=== PATIENT | female | born 1970 ===

== ENCOUNTER → 2019-02-14 22:22 | Outpatient (REF) | payer BC, SELFPAY ==
[2019-02-15 00:17] LABS: Add Manual Diff / Slide Review NO; Basophils Absolute Auto 0 /uL (0-100); Basophils Percent Auto 0.6 % (0-2); Eosinophils Absolute Auto 600 /uL (0-450); Hematocrit 39.7 % (36-46); Hemoglobin 12.9 g/dL (12.0-16.0); Lymphocytes Absolute Auto 1900 /uL (1100-4500); Lymphocytes Percent Auto 25.6 % (25-40); Mean Corpuscular HGB Conc 32.6 % (30-36); Mean Corpuscular Hemoglobin 31.6 PG (26-34); Monocytes Absolute Auto 600 /uL (0-900); Monocytes Percent Auto 8.8 % (3-14); Neutrophils Absolute Auto 4100 /uL (1500-7000); Platelet Count 250 X10^3/uL (150-400); Red Blood Cell Count 4.09 X10^6/uL (4.0-5.2); Red Cell Distribution Width 12.2 % (11.6-14.8); White Blood Cell Count 7.2 X10^3/uL (4.5-11.0)
[2019-02-15 00:36] LABS: Vitamin D 25 Hydroxy (D3) 116 ng/mL (30.0-100.0)
[2019-02-15 00:49] LABS: Erythrocyte Sedimentation Rate 7 MM/HR (0-20)
[2019-02-15 01:28] LABS: Lactate Dehydrogenase 367 U/L (313-618)
[2019-02-15 01:32] LABS: High Sensitivity CRP - Cardiac 0.8 mg/L (1.0-3.0)
[2019-02-15 01:50] LABS: Free T3, Triiodothyronine Free 6.08 pg/mL (2.77-5.27); Free T4, Direct Thyroxine 1.08 ng/dL (0.78-2.19); Triiodothryronine T3 Uptake 39.2 % (23.5-40.5)
[2019-02-15 02:04] LABS: Thyroid Stimulating Hormone 0.28 uIU/mL (0.47-4.68)
[2019-02-19 13:42] LABS: Anti Thyroglobulin Antibody 1 IU/mL (< 2); Thyroid Peroxidase Antibodies 5 IU/mL (< 9)
[2019-02-19 15:51] LABS: Homocysteine 7.7 umol/L (< 10.4)
[2019-02-20 09:16] LABS: Triiodothyronine T3 Total 165 ng/dL (76-181)
[2019-02-21 16:56] LABS: Methylmalonic Acid 171 nmol/L (87-318)
== END ==
LOC: LAB 22:22
PROVIDERS: Visit Provider Acupuncturist
DX: Z00.00 Encounter for general adult medical examination without abnormal findings (principal)
CPT/HCPCS: 36415; 82306; 83090; 83615; 83921; 84439; 84443; 84479; 84480; 84481; 85025; 85651; 86140; 86376; 86800